=== PATIENT | female | born 1935 | race African-American/Black ===

== ENCOUNTER 2017-04-13 10:28 | Emergency (ER) | payer MEDICARE ==
[~2017-04-13] VITALS: Ht 170.2 cm; Wt 54.0 kg
[~2017-04-13 10:28] MED LIST: ACET500T33 PO; AMLO10TA4 PO; AMLO5TAB2 PO; ASPI-482 PO; BYSTOLIC10 MG PO; CARV12.5 PO; CEFP100T PO; CLON0.1T PO; FURO-69 PO; HYDR-2868 PO; HYDR-2869 PO; Hydralazine Hcl PO; LORA0.5T96 PO; LOSA100T6 PO; LOSA50TA2 PO; MEGE400O PO; METO50TA2 PO; POTA20TA12 PO; SENN1TAB30 PO
[2017-04-13] MEDS ORDERED: hydrALAZINE 20 MG/ML VIAL. IVP ONE ×2 (11:15→12:00)
[2017-04-13] MEDS ORDERED: IV NORMAL SALINE 1000ML BAG 1,000 ML IV ONE (11:15)
[2017-04-13 11:21] LABS: CALCIUM 9.4 mg/dL (8.5-10.1); CREATININE 0.8 mg/dL (0.6-1.0); GFR 83.3; POTASSIUM 4.1 mmol/L (3.5-5.1)
[2017-04-13 11:28] LABS: ALBUMIN 3.6 g/dL (3.4-5.0); ALBUMIN/GLOBULIN RATIO 1.1 (1.0-1.7); TOTAL BILIRUBIN 0.3 mg/dL (0.2-1.0); TOTAL PROTEIN 6.9 g/dL (6.4-8.2)
[2017-04-13 11:34] LABS: BASO % 0 % (0-3); EOS % 0 % (0-3); HEMATOCRIT 37.6 % (36.0-47.0); HEMOGLOBIN 12.7 g/dL (12.0-15.5); LYMPH # 0.6 x10^3/uL (1.0-4.8); LYMPH % 11 % (24-48); MEAN CORPUSCULAR HEMOGLOBIN 33 pg (25-35); MEAN CORPUSCULAR HGB CONC 34 g/dL (31-37); MEAN CORPUSCULAR VOLUME 97 fL (79-100); MONO % 7 % (0-9); NEUT % 81 % (31-73); PLATELET COUNT 228 x10^3/uL (140-400); RED BLOOD COUNT 3.88 x10^6/uL (3.50-5.40); RED CELL DISTRIBUTION WIDTH 14.4 % (11.5-14.5); WHITE BLOOD COUNT 5.6 x10^3/uL (4.0-11.0)
[2017-04-13] MEDS ORDERED: CARVEDILOL 12.5 MG TABLET. PO STA (12:00)
[2017-04-13] MEDS ORDERED: LOSARTAN POTASSIUM 50 MG TABLET. PO STA (12:01)
[2017-04-13] MEDS ORDERED: LOSA100T6 PO (12:34)
--- NOTE | 2017-04-13 12:34 | PHYS DOC ---
Past Medical History Past Medical History: GERD, High Cholesterol, Hypertension Additional Past Medical Histor: prolapsed bladder Past Surgical History: Hysterectomy, Other Additional Past Surgical Histo: BLADDER SUSPENSION WITH MESH. Alcohol Use: None Drug Use: None Adult General Chief Complaint Chief Complaint: DIZZY/LIGHT HEADED HPI HPI Patient is a 81 year old female presenting to the emergency department for evaluation of dizziness and hypertension. Patient says that she takes her blood pressure multiple times daily and over the past 4 days has been elevated in the 190/100 range. She says she denies any symptoms including chest pain shortness of breath diaphoresis nausea vomiting diarrhea leg swelling decreased urination but she does feel some slight dizziness when she stands up. She says that she is on her usual blood pressure medications and has not missed any doses but she has not been sleeping well as she is anxious and taking MiraLAX which makes her have stool at night. Review of Systems Review of Systems Constitutional: Denies fever or chills [] Eyes: Denies change in visual acuity, redness, or eye pain [] HENT: Denies nasal congestion or sore throat [] Respiratory: Denies cough or shortness of breath [] Cardiovascular: No additional information not addressed in HPI [] GI: Denies abdominal pain, nausea, vomiting, bloody stools or diarrhea [] : Denies dysuria or hematuria [] Musculoskeletal: Denies back pain or joint pain [] Integument: Denies rash or skin lesions [] Neurologic: Denies headache, focal weakness or sensory changes [] Current Medications Current Medications Current Medications Medications (Trade) Dose Ordered Sig/Homar Start Time Stop Time Status Last Admin Dose Admin Carvedilol (Coreg) 12.5 mg 1X STAT 04/13/17 12:00 04/13/17 12:01 DC 04/13/17 12:06 12.5 MG Hydralazine HCl (Apresoline) 10 mg 1X ONCE 04/13/17 12:00 04/13/17 12:01 DC Losartan Potassium (Cozaar) 50 mg 1X STAT 04/13/17 12:01 04/13/17 12:02 DC 04/13/17 12:07 50 MG Sodium Chloride 1,000 ml @ 1,000 mls/hr 1X ONCE 04/13/17 11:15 04/13/17 12:14 DC 04/13/17 11:52 1,000 MLS/HR Allergies Allergies Allergies Coded Allergies Type Severity Reaction Last Updated Verified No Known Drug Allergies 09/21/14 No Physical Exam Physical Exam Constitutional: Well developed, well nourished, no acute distress, non-toxic appearance. [] HENT: Normocephalic, atraumatic, bilateral external ears normal, oropharynx moist, no oral exudates, nose normal. [] Eyes: PERRLA, EOMI, conjunctiva normal, no discharge. [] Neck: Normal range of motion, no tenderness, supple, no stridor. [] Cardiovascular:Heart rate regular rhythm, no murmur [] Lungs & Thorax: Bilateral breath sounds clear to auscultation [] Abdomen: Bowel sounds normal, soft, no tenderness, no masses, no pulsatile masses. [] Skin: Warm, dry, no erythema, no rash. [] Back: No tenderness, no CVA tenderness. [] Extremities: No tenderness, no cyanosis, no clubbing, ROM intact, no edema. [] Neurologic: Alert and oriented X 3, normal motor function, normal sensory function, no focal deficits noted. [] Current Patient Data Vital Signs Vital Signs Date Time Temp Pulse Resp B/P (MAP) Pulse Ox O2 Delivery O2 Flow Rate FiO2 04/13/17 12:51 64 150/80 (103) Room Air 04/13/17 12:30 14 97 04/13/17 10:33 98.3 98.3 Lab Values Laboratory Tests Test 04/13/17 10:54 White Blood Count 5.6 x10^3/uL (4.0-11.0) Red Blood Count 3.88 x10^6/uL (3.50-5.40) Hemoglobin 12.7 g/dL (12.0-15.5) Hematocrit 37.6 % (36.0-47.0) Mean Corpuscular Volume 97 fL (79-100) Mean Corpuscular Hemoglobin 33 pg (25-35) Mean Corpuscular Hemoglobin Concent 34 g/dL (31-37) Red Cell Distribution Width 14.4 % (11.5-14.5) Platelet Count 228 x10^3/uL (140-400) Neutrophils (%) (Auto) 81 % (31-73) H Lymphocytes (%) (Auto) 11 % (24-48) L Monocytes (%) (Auto) 7 % (0-9) Eosinophils (%) (Auto) 0 % (0-3) Basophils (%) (Auto) 0 % (0-3) Neutrophils # (Auto) 4.5 x10^3uL (1.8-7.7) Lymphocytes # (Auto) 0.6 x10^3/uL (1.0-4.8) L Monocytes # (Auto) 0.4 x10^3/uL (0.0-1.1) Eosinophils # (Auto) 0.0 x10^3/uL (0.0-0.7) Basophils # (Auto) 0.0 x10^3/uL (0.0-0.2) Sodium Level 136 mmol/L (136-145) Potassium Level 4.1 mmol/L (3.5-5.1) Chloride Level 99 mmol/L (98-107) Carbon Dioxide Level 31 mmol/L (21-32) Anion Gap 6 (6-14) Blood Urea Nitrogen 11 mg/dL (7-20) Creatinine 0.8 mg/dL (0.6-1.0) Estimated GFR (Cockcroft-Gault) 83.3 BUN/Creatinine Ratio 14 (6-20) Glucose Level 117 mg/dL (70-99) H Calcium Level 9.4 mg/dL (8.5-10.1) Magnesium Level 2.0 mg/dL (1.8-2.4) Total Bilirubin 0.3 mg/dL (0.2-1.0) Aspartate Amino Transferase (AST) 25 U/L (15-37) Alanine Aminotransferase (ALT) 29 U/L (14-59) Alkaline Phosphatase 69 U/L (46-116) Creatine Kinase 103 U/L (26-192) Troponin I Quantitative < 0.017 ng/mL (0.000-0.055) WL-Lcu-L-Type Natriuretic Peptide 146 pg/mL (0-449) Total Protein 6.9 g/dL (6.4-8.2) Albumin 3.6 g/dL (3.4-5.0) Albumin/Globulin Ratio 1.1 (1.0-1.7) Laboratory Tests 04/13/17 10:54 Laboratory Tests 04/13/17 10:54 EKG EKG Normal sinus rhythm at 79 beats per minutes with left axis deviation and no obvious ST elevation or depression and normal T waves Radiology/Procedures Radiology/Procedures [] Course & Med Decision Making Course & Med Decision Making Patient with essentially asymptomatic hypertension and she was given several doses of blood pressure medication here and she says that she is back to normal with no dizziness and denies any new complaints. Repeat neurologic exam is normal and she is asking to go home. Given her blood pressure has been this elevated over 4 days I will go ahead and double her losartan dose and have her follow with her primary care provider in 2 days and come back to the ER sooner with any worsening pain weakness or other general concerns. Patient aware and agreeable with plan for discharge and verbalized understanding of the need for short-term follow-up and strict ER return precautions discussed as above. Dragon Disclaimer Dragon Disclaimer This electronic medical record was generated, in whole or in part, using a voice recognition dictation system. Departure Departure Impression: Primary Impression: HTN (hypertension) Additional Impression: Dizziness Disposition: 01 HOME, SELF-CARE Condition: GOOD Referrals: HERLINDA KHOURY Jr, MD (PCP) Patient Instructions: Hypertension Additional Instructions: FOLLOW WITH YOUR PCP IN 2-3 DAYS. DOUBLE YOUR LOSARTAN TO 100MG A DAY INSTEAD OF THE 50MG A DAY YOU ARE TAKING CURRENTLY. THANK YOU! Scripts Losartan Potassium (LOSARTAN POTASSIUM) 100 Mg Tablet 100 MG PO DAILY, #30 TAB Prov: JHONATAN MIGUEL DO 04/13/17 Problem Qualifiers JHONATAN MIGUEL DO April 13, 2017 12:34
[2017-04-13 12:51] VITALS: BP 150/80
--- NOTE | 2017-04-13 15:14 | EKG ---
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
== END 2017-04-13 13:10 | disposition home or self-care (01) ==
LOC: ER 11:20
DX: I10 Essential (primary) hypertension (principal); R42 Dizziness and giddiness; K21.9 Gastro-esophageal reflux disease without esophagitis; E78.00 Pure hypercholesterolemia, unspecified
CPT/HCPCS: 36415; 80053; 82550; 83735; 83880; 84484; 85027; 93005; 96361; 96374; 99285; J0360; J7030